=== PATIENT | female | born 1950 | race Hispanic/Latino ===

== ENCOUNTER 2021-09-18 16:24 | Emergency (ER) | payer MEDICARE ==
--- NOTE | 2021-09-18 17:33 | XRay Report ---
LEFT FEMUR 2 VIEW(S) INDICATION / CLINICAL INFORMATION: fall COMPARISON: None available. FINDINGS: BONES / JOINT(S): Left hip arthroplasty projects in expected position without acute complication. No periprosthetic fracture identified. SOFT TISSUES: No significant abnormality. ADDITIONAL FINDINGS: None. Signer Name: Tree Rivera MD Signed: 09/18/2021 5:29 PM Workstation Name: [id number]
--- NOTE | 2021-09-18 17:34 | XRay Report ---
LEFT HIP 2 VIEW(S) INDICATION / CLINICAL INFORMATION: fall COMPARISON: None available. FINDINGS: BONES / JOINT(S): Left hip arthroplasty projects in expected position without acute complication. No fracture identified. SOFT TISSUES: No significant abnormality. ADDITIONAL FINDINGS: None. Signer Name: Tree Rivera MD Signed: 09/18/2021 5:30 PM Workstation Name: [id number]
--- NOTE | 2021-09-18 17:35 | XRay Report ---
LEFT TIBIA AND FIBULA 2 VIEWS INDICATION / CLINICAL INFORMATION: fall. COMPARISON: None available. FINDINGS: BONES / JOINT(S): No acute fracture or subluxation. Large calcaneal spur. 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 SOFT TISSUES: No significant abnormality. ADDITIONAL FINDINGS: None. Signer Name: Sebastián Sanchez MD Signed: 09/18/2021 5:31 PM Workstation Name: [id number]
--- NOTE | 2021-09-18 18:03 | Event Note ---
ED Screening Note ED Screening Note: lives with daughter hx fall 1 w ago left hip pain inc weakness since parkinsons dz recent diarrhea has book of her PMH in her lap This initial assessment/diagnostic orders/clinical plan/treatment(s) is/are subject to change based on patients health status, clinical progression and re- assessment by fellow clinical providers in the ED. Further treatment and workup at subsequent clinical providers discretion. Patient/guardian urged not to elope from the ED as their condition may be serious if not clinically assessed and managed. Initial orders include: main for eval for weakness
[2021-09-18 18:47] LABS: Hematocrit 41.6 % (30.3-42.9); Hemoglobin 13.8 gm/dl (10.1-14.3); Mean Corpuscular HGB Conc 33 % (30-34); Mean Corpuscular Volume 95 fl (79-97); Platelet Count 191 K/mm3 (140-440); Red Blood Count 4.39 M/mm3 (3.65-5.03); Red Cell Distribution Width 14.2 % (13.2-15.2)
[2021-09-18 19:10] LABS: Albumin 4.4 g/dL (3.9-5); Blood Urea Nitrogen 17 mg/dL (7-17); Calcium 9.5 mg/dL (8.4-10.2); Hemolysis Index 19
[2021-09-18 19:20] LABS: Alanine Aminotransferase < 5 units/L (7-56); BUN/Creatinine Ratio 28
[2021-09-18] MEDS ORDERED: HYDROcodone/ACETAMINOPHEN 5-325 MG TAB PO ONE (23:50)
--- NOTE | 2021-09-18 23:55 | Emergency Department Report ---
ED General Adult HPI - General Chief complaint: Extremity Injury, Lower Stated complaint: LEFT LEG PAIN Time Seen by Provider: 09/18/21 23:50 Source: patient Mode of arrival: Ambulatory Limitations: No Limitations - History of Present Illness Initial comments: pt fell at 12 noon and now cant walk .pt fell , recently moved from [place] , no head injury, has parkinson -: Sudden, hour(s) Location: lower extremity Severity scale (0 -10): 3 Quality: aching Consistency: constant Improves with: none Worsens with: none Associated Symptoms: denies: denies other symptoms, confusion, chest pain, cough - Related Data Allergies Allergy/AdvReac Type Severity Reaction Status Date / Time ciprofloxacin [From Cipro] Allergy Unknown Verified 09/18/21 16:38 ED Review of Systems ROS: Stated complaint: LEFT LEG PAIN Other details as noted in HPI Constitutional: denies: chills, fever Eyes: denies: eye pain, eye discharge, vision change ENT: denies: ear pain, throat pain Respiratory: denies: cough, shortness of breath, wheezing Cardiovascular: denies: chest pain, palpitations Endocrine: no symptoms reported Gastrointestinal: denies: abdominal pain, nausea, diarrhea Genitourinary: denies: urgency, dysuria, discharge Musculoskeletal: denies: back pain, joint swelling, arthralgia Skin: denies: rash, lesions Neurological: denies: headache, weakness, paresthesias Psychiatric: denies: anxiety, depression Hematological/Lymphatic: denies: easy bleeding, easy bruising ED Physical Exam - General Limitations: No Limitations General appearance: alert, in no apparent distress - Head Head exam: Present: atraumatic, normocephalic - Eye Eye exam: Present: normal appearance - ENT ENT exam: Present: mucous membranes moist - Neck Neck exam: Present: normal inspection - Respiratory Respiratory exam: Present: normal lung sounds bilaterally. Absent: respiratory distress - Cardiovascular Cardiovascular Exam: Present: regular rate, normal rhythm. Absent: systolic murmur, diastolic murmur, rubs, gallop - GI/Abdominal GI/Abdominal exam: Present: soft, normal bowel sounds - Extremities Exam Extremities exam: Present: normal inspection - Expanded Lower Extremity Exam Left Upper Leg exam: Present: tenderness - Back Exam Back exam: Present: normal inspection - Neurological Exam Neurological exam: Present: alert, oriented X3 - Psychiatric Psychiatric exam: Present: normal affect, normal mood - Skin Skin exam: Present: warm, dry, intact, normal color. Absent: rash ED Course Vital Signs 09/18/21 16:39 Temperature 98 F Pulse Rate 94 H Respiratory 16 Rate Blood Pressure 149/89 [Left] O2 Sat by Pulse 97 Oximetry ED Medical Decision Making - Lab Data Result diagrams: 09/18/21 Unknown 09/18/21 Unknown - Radiology Data Radiology results: report reviewed, image reviewed - Medical Decision Making work up negative , x ray negative pain med sgiven pt requested neurology referral for her cervical fusion given Critical care attestation.: If time is entered above; I have spent that time in minutes in the direct care of this critically ill patient, excluding procedure time. ED Disposition Clinical Impression: Fall, Left leg pain Disposition: 01 HOME / SELF CARE / HOMELESS Is pt being admited?: No Does the pt Need Aspirin: No Condition: Stable Referrals: MINDY SOLIS II, MD [Staff Physician] - 3-5 Days
[2021-09-19 01:29] VITALS: BP 148/62
== END 2021-09-19 01:29 | disposition home or self-care (01) ==
LOC: ED 16:24
DX: M79.605 Pain in left leg (principal); Z88.1 Allergy status to other antibiotic agents; W19.XXXA Unspecified fall, initial encounter; Y93.89 Activity, other specified; Y92.89 Other specified places as the place of occurrence of the external cause; Y99.8 Other external cause status
CPT/HCPCS: 36415; 80053; 85027; 99284